=== PATIENT | female | born 2000 | race Caucasian/White ===

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

== ENCOUNTER 2020-08-27 14:22 | Emergency (ER) | payer OTHER ==
[~2020-08-27] VITALS: Ht 170.2 cm; Wt 86.2 kg
[2020-08-27] MEDS ORDERED: MAGIC MOUTHWASH SWISH&SPIT (16:06)
[2020-08-27] MEDS ORDERED: PREDNISONE 20 M20 MG PO (16:06)
[2020-08-27] MEDS ORDERED: DIPHENHIST50 MG PO (16:06)
[2020-08-27] MEDS ORDERED: PEPCID20 MG PO (16:06)
[2020-08-27 16:10] VITALS: BP 126/69
== END 2020-08-27 16:13 | disposition home or self-care (01) ==
LOC: ER 14:22
DX: T28.5XXA Corrosion of mouth and pharynx, initial encounter (principal); T78.40XA Allergy, unspecified, initial encounter; Z91.018 Allergy to other foods; Y93.89 Activity, other specified; Y92.89 Other specified places as the place of occurrence of the external cause; Y99.8 Other external cause status

== ENCOUNTER 2021-05-13 09:12 | Emergency (ER) | payer OTHER ==
[~2021-05-13] VITALS: Ht 162.6 cm; Wt 113.4 kg
[~2021-05-13 09:12] MED LIST: DIPHENHIST50 MG PO; MAGIC MOUTHWASH SWISH&SPIT; PEPCID20 MG PO; PREDNISONE 20 M20 MG PO
[2021-05-13 11:54] VITALS: BP 130/86
== END 2021-05-13 11:55 | disposition home or self-care (01) ==
LOC: ER 09:12
DX: S61.412A Laceration without foreign body of left hand, initial encounter (principal); Z91.02 Food additives allergy status; W26.0XXA Contact with knife, initial encounter; Y93.89 Activity, other specified; Y92.89 Other specified places as the place of occurrence of the external cause; Y99.8 Other external cause status